=== PATIENT | female | born 1990 | race American Indian/Alaskan Native ===

== ENCOUNTER 2017-10-07 12:49 | Emergency (ER) | payer OTHER ==
--- NOTE | 2017-10-07 13:42 | Emergency Department Report ---
Chief Complaint: Abdominal Pain Stated Complaint: CHECK OF POSSIBLE STI Time Seen by Provider: 10/07/17 13:29 - HPI History of Present Illness: Patient is a 26-year-old female with no prior medical history presents the ED complaining of possible STD exposure. Patient states she has had a vaginal delivery about 3 weeks ago with no complication. Patient states about a week after that she had sex with her boyfriend. Patient states boyfriend started complaining of penile discharge and pain so she decided coming the ED to get checked. Patient states she still has some vaginal lochia and has some low pelvic cramping. - ROS Review of Systems: As noted in HPI - Exam Vital Signs: Vital Signs 10/07/17 13:19 Temperature 98.7 F Pulse Rate 98 H Respiratory 16 Rate Blood Pressure 130/86 O2 Sat by Pulse 99 Oximetry Physical Exam: GENERAL: Alert and oriented x3, no apparent distress, Normal Gait, atraumatic. HEART: S1, S2 present, regular rate and rhythm without murmur, no rubs, no gallops. Non tender to palpation ABDOMEN: No organomegaly was noted,Positive bowel sounds, soft, and non- distended. . Nontender to palpation on all Quadrants, NO CVA tenderness. MSE screening note: Focused history and physical exam performed. Due to findings the following was ordered: ED Medical Decision Making - Medical Decision Making 26-year-old female with no acute distress sign, abdominal pain protocol under. Patient was seen by the physician. ED Disposition for MSE Condition: Stable Instructions: Abdominal Pain (ED)
[2017-10-07 14:07] LABS: Basophils % (Auto) 0.7 % (0.0-1.8); Eosinophils % (Auto) 1.2 % (0.0-4.3); Hematocrit 42.3 % (30.3-42.9); Hemoglobin 13.8 gm/dl (10.1-14.3); Mean Corpuscular HGB Conc 33 % (30-34); Mean Corpuscular Hemoglobin 29 pg (28-32); Mean Corpuscular Volume 88 fl (79-97); Platelet Count 197 K/mm3 (140-440); Red Blood Count 4.81 M/mm3 (3.65-5.03); Red Cell Distribution Width 14.4 % (13.2-15.2); White Blood Count 4.6 K/mm3 (4.5-11.0)
[2017-10-07 14:24] LABS: Alanine Aminotransferase 14 units/L (7-56); Albumin 4.1 g/dL (3.9-5); Albumin/Globulin Ratio 1.6 %; Alkaline Phosphatase 65 units/L (35-129); Anion Gap 20 mmol/L; BUN/Creatinine Ratio 15; Blood Urea Nitrogen 9 mg/dL (7-17); Calcium 8.7 mg/dL (8.4-10.2); Carbon Dioxide 23 mmol/L (22-30); Chloride 102.6 mmol/L (98-107); Glucose 64 mg/dL (65-100); Lipase 45 units/L (13-60); Potassium 4.2 mmol/L (3.6-5.0); Sodium 141 mmol/L (137-145); Total Protein 6.6 g/dL (6.3-8.2)
[2017-10-07 15:03] LABS: Bacteria,Urine 1+ /HPF (Negative); Bilirubin,Urine NEG (Negative); Blood,Urine LG (Negative); Ketones,Urine NEG (Negative); Leukocyte Esterase,Urine MOD (Negative); Mucus,Urine 3+ /HPF; Nitrite,Urine NEG (Negative); Protein,Urine <15 mg/dL mg/dL (Negative); Urobilinogen,Urine < 2.0 mg/dL (<2.0)
[2017-10-07] MEDS ORDERED: SUBLIMAZE ONE (16:52)
[2017-10-07] MEDS ORDERED: ZOFRAN ONE (16:52)
[2017-10-07] MEDS ORDERED: NACL 0.9% 1000 ML 0 ML ONE (16:52)
[2017-10-07] MEDS ORDERED: ROCEPHIN IM ONE (17:08)
[2017-10-07] MEDS ORDERED: XYLOCAINE 1% MPF 5 mL INFILTRATI ONE (17:08)
[2017-10-07] MEDS ORDERED: ZITHROMAX PO ONE (17:12)
--- NOTE | 2017-10-07 17:13 | Emergency Department Report ---
ED Female HPI - General Chief complaint: Abdominal Pain Stated complaint: CHECK OF POSSIBLE STI Time Seen by Provider: 10/07/17 13:29 Source: patient Mode of arrival: Ambulatory Limitations: No Limitations - History of Present Illness Initial comments: Patient is a 26-year-old female, status post vaginal delivery on 09/19/2017. She stated that she had sex 7 days after her delivery and now she is coming with symptoms of vaginal discharge and abdominal cramping pain. Denied any vaginal bleeding. Patient stated that her boyfriend is being treated for STDs. No fever no nausea no vomiting MD Complaint: vaginal discharge Severity: moderate Quality: cramping - Related Data Allergies Allergy/AdvReac Type Severity Reaction Status Date / Time No Known Allergies Allergy Unverified 10/07/17 13:26 ED Review of Systems ROS: Stated complaint: CHECK OF POSSIBLE STI Other details as noted in HPI Comment: All other systems reviewed and negative Constitutional: denies: chills, fever Respiratory: denies: cough, SOB with exertion Cardiovascular: denies: chest pain, palpitations Gastrointestinal: abdominal pain (cramping). denies: nausea, vomiting, diarrhea Genitourinary: denies: urgency, frequency, hematuria Neurological: denies: headache ED Past Medical Hx - Past Medical History Previous Medical History?: No - Surgical History Past Surgical History?: No - Social History Smoking Status: Current Every Day Smoker Substance Use Type: Marijuana ED Physical Exam - General Limitations: No Limitations General appearance: alert, in no apparent distress - Head Head exam: Present: normocephalic - Eye Eye exam: Present: normal appearance - Neck Neck exam: Present: normal inspection - Respiratory Respiratory exam: Present: normal lung sounds bilaterally - Cardiovascular Cardiovascular Exam: Present: regular rate, normal rhythm, normal heart sounds - GI/Abdominal GI/Abdominal exam: Present: soft, normal bowel sounds. Absent: tenderness, guarding, rebound, rigid, mass, bruit, pulsatile mass, hernia - Extremities Exam Extremities exam: Present: normal inspection - Back Exam Back exam: Present: normal inspection. Absent: CVA tenderness (R), CVA tenderness (L) - Neurological Exam Neurological exam: Present: alert, oriented X3, CN II-XII intact - Skin Skin exam: Present: warm, normal color ED Course Vital Signs 10/07/17 10/07/17 13:19 15:05 Temperature 98.7 F 99.3 F Pulse Rate 98 H 68 Respiratory 16 17 Rate Blood Pressure 130/86 Blood Pressure 116/78 [Right] O2 Sat by Pulse 99 100 Oximetry ED Medical Decision Making - Lab Data Result diagrams: 10/07/17 13:38 10/07/17 13:38 Critical care attestation.: If time is entered above; I have spent that time in minutes in the direct care of this critically ill patient, excluding procedure time. ED Disposition Clinical Impression: Possible exposure to STD, UTI (urinary tract infection) Disposition: DC-01 TO HOME OR SELFCARE Is pt being admited?: No Condition: Stable Instructions: Abdominal Pain (ED), Urinary Tract Infection in Women (ED), Sexually Transmitted Diseases (ED)
[2017-10-07 17:52] VITALS: BP 116/78
== END 2017-10-07 17:51 | disposition home or self-care (01) ==
LOC: ED 12:49
DX: N39.0 Urinary tract infection, site not specified (principal); F17.200 Nicotine dependence, unspecified, uncomplicated; F12.10 Cannabis abuse, uncomplicated
CPT/HCPCS: 36415; 80053; 81001; 83690; 84702; 84703; 85025; 86850; 86870; 86900; 86901; 96372; 99283; J0696; J2405; J3010; J7030